=== PATIENT | female | born 1975 | race Hispanic/Latino ===

== ENCOUNTER 2023-09-19 08:47 | Emergency (ER) | payer MEDICAID, OTHER ==
[~2023-09-19] VITALS: Ht 165.1 cm; Wt 81.6 kg
[2023-09-19] MEDS: IBUPROFEN 600 MG TABLET PO ONE (09:28)
[2023-09-19 10:38] VITALS: BP 112/60; PULSE 76; RESP 18; O2SAT 98
== END 2023-09-19 11:10 | disposition home or self-care (01) ==
LOC: EDH 08:47
DX: S01.81XA Laceration without foreign body of other part of head, initial encounter (principal); Z98.890 Other specified postprocedural states; W18.39XA Other fall on same level, initial encounter; Y93.89 Activity, other specified; Y92.89 Other specified places as the place of occurrence of the external cause; Y99.8 Other external cause status
CPT/HCPCS: 12011; 70450